=== PATIENT | male | born 1950 | race Two or more races ===

== ENCOUNTER 2021-09-07 07:17 | Outpatient (CLI) | payer OTHER | END 2021-09-07 07:23 | disposition home or self-care (01) | LOC: NUCLEAR 07:17 | PROVIDERS: ATTEND Internal Medicine | DX: I25.9 Chronic ischemic heart disease, unspecified (principal) | CPT/HCPCS: 78452; A9500; A9554 ==

== ENCOUNTER 2023-05-23 07:10 | Outpatient (CLI) | payer OTHER | END 2023-05-23 07:11 | disposition home or self-care (01) | LOC: NUCLEAR 07:10 | PROVIDERS: ATTEND Internal Medicine | DX: I25.9 Chronic ischemic heart disease, unspecified (principal) | CPT/HCPCS: 78452; 93017; A9500; J0153 ==